=== PATIENT | male | born 1975 | race Caucasian/White ===

== ENCOUNTER 2019-01-29 22:25 | Inpatient (IN) | payer MEDICAID ==
[~2019-01-29] VITALS: Ht 175.3 cm; Wt 97.5 kg
[2019-01-29 22:33] VITALS: BP_SYST 172
[2019-01-29 23:08] LABS: BASOPHILS % (AUTO) 0.2 % (0.0-2.0); MONOCYTES % (AUTO) 9.3 % (1.7-9.3)
[2019-01-29 23:12] LABS: HEMATOCRIT 41.3 % (36-54); HEMOGLOBIN 14.3 g/dL (14.0-18.0); LYMPHOCYTES # (AUTO) 1.5 K/uL (1.0-5.5); MEAN CORPUSCULAR HEMOGLOBIN 30 pg (27-31); MEAN CORPUSCULAR HGB CONC 35 % (32-36); MEAN CORPUSCULAR VOLUME 87 fL (79.0-98.0); NEUTROPHILS # (AUTO) 8.3 K/uL (1.8-7.7); NEUTROPHILS % (AUTO) 76.5 % (40.0-70.0); RED BLOOD CELL COUNT(AUTO) 4.74 MIL/uL (4.2-6.2); RED CELL DISTRIBUTION WIDTH 12.7 % (9.0-15.0); WHITE BLOOD COUNT (AUTO) 10.9 K/uL (4.8-10.8)
[2019-01-29 23:14] LABS: PLATELET COUNT (AUTO) 5 K/uL (130-430)
[2019-01-29 23:19] LABS: INR 0.9 (0.80-1.20); PROTHROMBIN TIME 9.7 SECS (9.5-12.5)
[2019-01-29 23:23] LABS: ALBUMIN 3.3 g/dL (3.4-4.8); CREATININE 1.03 mg/dL (0.55-1.30); POTASSIUM 4.1 mmol/L (3.5-5.1); TOTAL BILIRUBIN 1.1 mg/dL (0.0-1.0)
[2019-01-29] MEDS ORDERED: vitamin k PO (23:39)
[2019-01-29 23:43] LABS: CALCIUM 8.8 mg/dL (8.4-11.0)
[2019-01-30] MEDS ORDERED: methylPREDNISolone SOD SUCC/PF 62.5 MG/ML VIAL IVP ONE (00:30)
[2019-01-30] MEDS ORDERED: DECADRON 4 MG TABLET PO ONE (00:45)
[2019-01-30] MEDS ORDERED: DECADRON 4 MG TABLET ONE ×2 (01:12→01:33)
[2019-01-30 01:20] LABS: BASOPHILS % (AUTO) 0.1 % (0.0-2.0); EOSINOPHILS % (AUTO) 0.1 % (0.0-4.0); HEMATOCRIT 39.2 % (36-54); HEMOGLOBIN 13.4 g/dL (14.0-18.0); LYMPHOCYTES # (AUTO) 1.6 K/uL (1.0-5.5); LYMPHOCYTES % (AUTO) 14.7 % (20.5-51.5); MEAN CORPUSCULAR HEMOGLOBIN 30 pg (27-31); MEAN CORPUSCULAR HGB CONC 34 % (32-36); MEAN CORPUSCULAR VOLUME 88 fL (79.0-98.0); MONOCYTES # (AUTO) 1.2 K/uL (0.0-1.0); MONOCYTES % (AUTO) 10.9 % (1.7-9.3); NEUTROPHILS # (AUTO) 8.2 K/uL (1.8-7.7); NEUTROPHILS % (AUTO) 74.2 % (40.0-70.0); RED BLOOD CELL COUNT(AUTO) 4.46 MIL/uL (4.2-6.2); RED CELL DISTRIBUTION WIDTH 12.4 % (9.0-15.0)
[2019-01-30 01:25] LABS: PLATELET COUNT (AUTO) 5 K/uL (130-430)
[2019-01-30 01:35] VITALS: BP_SYST 125
[2019-01-30] MEDS ORDERED: methylPREDNISolone SOD SUCC/PF 62.5 MG/ML VIAL IVP SCH (06:00)
[2019-01-30 07:45] LABS: HEMATOCRIT 42.9 % (36-54); HEMOGLOBIN 14.7 g/dL (14.0-18.0); LYMPHOCYTES # (AUTO) 1.3 K/uL (1.0-5.5); LYMPHOCYTES % (AUTO) 9.5 % (20.5-51.5); MEAN CORPUSCULAR HEMOGLOBIN 30 pg (27-31); MEAN CORPUSCULAR HGB CONC 34 % (32-36); MEAN CORPUSCULAR VOLUME 87 fL (79.0-98.0); MONOCYTES # (AUTO) 0.3 K/uL (0.0-1.0); MONOCYTES % (AUTO) 2.1 % (1.7-9.3); NEUTROPHILS # (AUTO) 12.5 K/uL (1.8-7.7); RED BLOOD CELL COUNT(AUTO) 4.94 MIL/uL (4.2-6.2); RED CELL DISTRIBUTION WIDTH 12.9 % (9.0-15.0); RETICULOCYTE COUNT 2.8 % (0.5-1.5); WHITE BLOOD COUNT (AUTO) 14.1 K/uL (4.8-10.8)
[2019-01-30 08:01] VITALS: BP_SYST 151
[2019-01-30 08:16] LABS: PLATELET COUNT (AUTO) 10 K/uL (130-430)
[2019-01-30 10:42] LABS: NEUTROPHILS % (AUTO) 88.4 % (40.0-70.0)
[2019-01-30 12:35] VITALS: BP_SYST 155
[2019-01-30 16:51] VITALS: BP_SYST 135
[2019-01-30 19:15] VITALS: BP_SYST 143
[2019-01-31 06:31] LABS: HEMATOCRIT 40.3 % (36-54); HEMOGLOBIN 13.7 g/dL (14.0-18.0); LYMPHOCYTES # (AUTO) 1.7 K/uL (1.0-5.5); LYMPHOCYTES % (AUTO) 12.5 % (20.5-51.5); MEAN CORPUSCULAR HEMOGLOBIN 30 pg (27-31); MEAN CORPUSCULAR HGB CONC 34 % (32-36); MEAN CORPUSCULAR VOLUME 88 fL (79.0-98.0); MONOCYTES # (AUTO) 1.2 K/uL (0.0-1.0); MONOCYTES % (AUTO) 8.6 % (1.7-9.3); NEUTROPHILS % (AUTO) 78.9 % (40.0-70.0); RED BLOOD CELL COUNT(AUTO) 4.61 MIL/uL (4.2-6.2); RED CELL DISTRIBUTION WIDTH 12.6 % (9.0-15.0); WHITE BLOOD COUNT (AUTO) 13.9 K/uL (4.8-10.8)
[2019-01-31 07:03] LABS: PLATELET COUNT (AUTO) 46 K/uL (130-430)
[2019-01-31 08:03] VITALS: BP_SYST 133
[2019-01-31] MEDS: DECADRON 4 MG TABLET PO SCH (08:36)
[2019-01-31 12:12] VITALS: BP_SYST 149
[2019-01-31 16:00] VITALS: BP_SYST 147
[2019-01-31 20:00] VITALS: BP_SYST 119
[2019-01-31 23:52] VITALS: BP_SYST 135
[2019-02-01 06:32] LABS: BASOPHILS % (AUTO) 0.1 % (0.0-2.0); HEMATOCRIT 40.8 % (36-54); HEMOGLOBIN 14.3 g/dL (14.0-18.0); LYMPHOCYTES # (AUTO) 1.5 K/uL (1.0-5.5); LYMPHOCYTES % (AUTO) 10.8 % (20.5-51.5); MEAN CORPUSCULAR HEMOGLOBIN 31 pg (27-31); MEAN CORPUSCULAR HGB CONC 35 % (32-36); MEAN CORPUSCULAR VOLUME 87 fL (79.0-98.0); MONOCYTES # (AUTO) 0.9 K/uL (0.0-1.0); MONOCYTES % (AUTO) 6.4 % (1.7-9.3); NEUTROPHILS # (AUTO) 11.8 K/uL (1.8-7.7); NEUTROPHILS % (AUTO) 82.7 % (40.0-70.0); PLATELET COUNT (AUTO) 102 K/uL (130-430); RED BLOOD CELL COUNT(AUTO) 4.68 MIL/uL (4.2-6.2); RED CELL DISTRIBUTION WIDTH 12.9 % (9.0-15.0); WHITE BLOOD COUNT (AUTO) 14.2 K/uL (4.8-10.8)
[2019-02-01] MEDS: DECADRON 4 MG TABLET PO SCH (10:23)
[2019-02-01] MEDS ORDERED: DEC4 PO (10:31)
[2019-02-01 12:36] VITALS: BP_SYST 137; BP_SYST 138
== END 2019-02-01 13:50 | disposition home or self-care (01) | DRG 661 ==
LOC: SED 22:25 → SMU 01-30 00:26
PROVIDERS: ADMIT Internal Medicine Hospice and Palliative Medicine; ATTEND Internal Medicine Hospice and Palliative Medicine
PROC: 30233R1 Transfusion of Nonautologous Platelets into Peripheral Vein, Percutaneous Approach (ICD-10-PCS; principal; 2019-01-30)
DX: D69.3 Immune thrombocytopenic purpura (principal); R04.0 Epistaxis; R73.9 Hyperglycemia, unspecified
CPT/HCPCS: 36415; 80053; 83010; 83615-TC; 85025; 85044-TC; 85610-TC; 85730-TC; 86886; 86900; 86901; 99285; J2930; J7050; J8540; P9034